=== PATIENT | male | born 1940 | race Caucasian/White ===

== ENCOUNTER 2017-08-29 12:02 | Emergency (ER) | payer MEDICARE ==
[~2017-08-29] VITALS: Ht 175.3 cm; Wt 84.1 kg
[2017-08-29] MEDS ORDERED: AMIODARONE PO (12:36)
[2017-08-29] MEDS ORDERED: METOPROLOL SUCC25 M1 PO (12:36)
[2017-08-29] MEDS ORDERED: ATORVASTATIN CA40 MG PO (12:36)
[2017-08-29] MEDS ORDERED: SERTRALINE HYD100 MG PO (12:36)
[2017-08-29] MEDS ORDERED: PRADAXA 150MG150 MG PO (12:36)
[2017-08-29] MEDS ORDERED: FLUTICASON0.05 MG/AC NS (12:36)
[2017-08-29] MEDS ORDERED: LISINOPRIL2.5 MG PO (12:36)
[2017-08-29] MEDS ORDERED: OMEPRAZOLE D/R20 MG PO (12:36)
[2017-08-29 13:14] LABS: HEMATOCRIT 39.9 % (42.0-52.0); MEAN CELL VOLUME 92 fl (78-100); MEAN CORPUSCULAR HEMOGLOBIN 30 pg (27-31); MEAN CORPUSCULAR HGB CONC 33 g/dL (33-37); MEAN PLATELET VOLUME 8.9 fl (7.4-10.4); PLATELET COUNT 204 K/mm3 (130-400); RED BLOOD COUNT 4.36 M/mm3 (4.20-5.60); RED CELL DISTRIBUTION WIDTH 13.5 % (11.5-14.5); WHITE BLOOD COUNT 12.3 K/mm3 (4.8-10.8)
[2017-08-29 13:23] LABS: LYMPHOCYTE 5 % (20-51); MONOCYTE 7 % (3-10); NEUTROPHILS 88 % (42-75)
[2017-08-29 13:27] LABS: ALBUMIN 3.4 g/dL (3.5-5.0); BUN/CREATININE RATIO 13.9 (6.0-26.0); CALCIUM 8.7 mg/dL (8.4-10.2); POTASSIUM 4.5 mmol/L (3.6-5.0); TOTAL BILIRUBIN 0.7 mg/dL (0.2-1.3); TOTAL PROTEIN 6.6 g/dL (6.3-8.2)
[2017-08-29 14:12] LABS: URINE APPEARANCE CLEAR; URINE BILIRUBIN NEGATIVE (NEGATIVE); URINE GLUCOSE NEGATIVE (NEGATIVE); URINE KETONE NEGATIVE (NEGATIVE); URINE NITRATE NEGATIVE (NEGATIVE); URINE PROTEIN(semi-quant) 1+ mg/dL (NEGATIVE); URINE UROBILINOGEN NORMAL (NORMAL)
[2017-08-29 14:13] LABS: URINE BLOOD TRACE (NEGATIVE); URINE COLOR DARK YELLOW; URINE LEUKOCYTE ESTERASE NEGATIVE (NEGATIVE); URINE MUCUS PRESENT (NOT PRESENT); URINE WBC 0-1 /hpf (0-3)
[2017-08-29 15:12] VITALS: BP 118/69
== END 2017-08-29 15:06 | disposition home or self-care (01) ==
LOC: ED 12:02
PROVIDERS: Physician Assistant
DX: B34.9 Viral infection, unspecified (principal); I48.91 Unspecified atrial fibrillation; Z79.01 Long term (current) use of anticoagulants; K21.9 Gastro-esophageal reflux disease without esophagitis; I10 Essential (primary) hypertension; I51.9 Heart disease, unspecified

== ENCOUNTER 2017-09-12 15:35 | Emergency (ER) | payer MEDICARE ==
[~2017-09-12] VITALS: Ht 182.9 cm; Wt 81.8 kg
[~2017-09-12 15:35] MED LIST: AMIODARONE PO; ATORVASTATIN CA40 MG PO; CEFDINIR300 MG PO; FLUTICASON0.05 MG/AC NS; LISINOPRIL2.5 MG PO; METOPROLOL SUCC25 M1 PO; OMEPRAZOLE D/R20 MG PO; PRADAXA 150MG150 MG PO; SERTRALINE HYD100 MG PO
[2017-09-12 17:23] LABS: HEMATOCRIT 38.6 % (42.0-52.0); HEMOGLOBIN 12.5 g/dL (13.5-18.0); MEAN CELL VOLUME 91 fl (78-100); MEAN CORPUSCULAR HEMOGLOBIN 30 pg (27-31); MEAN CORPUSCULAR HGB CONC 32 g/dL (33-37); MEAN PLATELET VOLUME 8.1 fl (7.4-10.4); PLATELET COUNT 410 K/mm3 (130-400); RED BLOOD COUNT 4.23 M/mm3 (4.20-5.60); RED CELL DISTRIBUTION WIDTH 13.5 % (11.5-14.5)
[2017-09-12 17:47] LABS: ALBUMIN 3.4 g/dL (3.5-5.0); BUN/CREATININE RATIO 16.8 (6.0-26.0); CALCIUM 8.7 mg/dL (8.4-10.2); POTASSIUM 4.3 mmol/L (3.6-5.0); TOTAL BILIRUBIN 0.5 mg/dL (0.2-1.3); TOTAL PROTEIN 6.9 g/dL (6.3-8.2)
[2017-09-12 17:55] LABS: URINE APPEARANCE CLEAR; URINE BILIRUBIN NEGATIVE (NEGATIVE); URINE BLOOD NEGATIVE (NEGATIVE); URINE COLOR YELLOW; URINE GLUCOSE NEGATIVE (NEGATIVE); URINE KETONE NEGATIVE (NEGATIVE); URINE LEUKOCYTE ESTERASE NEGATIVE (NEGATIVE); URINE NITRATE NEGATIVE (NEGATIVE); URINE PROTEIN(semi-quant) NEGATIVE (NEGATIVE); URINE UROBILINOGEN NORMAL (NORMAL); URINE WBC 0-1 /hpf (0-3)
[2017-09-12 17:56] LABS: URINE MUCUS PRESENT (NOT PRESENT)
[2017-09-12 18:38] LABS: BAND 1 % (0-10); LYMPHOCYTE 11 % (20-51); MONOCYTE 7 % (3-10); NEUTROPHILS 81 % (42-75)
[2017-09-12] MEDS ORDERED: CIPRO500 M1 PO (20:03)
[2017-09-12] MEDS ORDERED: FLAGYL500 M1 PO (20:03)
[2017-09-12 20:10] VITALS: BP 112/63
== END 2017-09-12 20:10 | disposition home or self-care (01) ==
LOC: ED 15:35
PROVIDERS: Physician Assistant
DX: K57.32 Diverticulitis of large intestine without perforation or abscess without bleeding (principal); R59.0 Localized enlarged lymph nodes; R91.8 Other nonspecific abnormal finding of lung field; I48.91 Unspecified atrial fibrillation; I10 Essential (primary) hypertension; K21.9 Gastro-esophageal reflux disease without esophagitis
CPT/HCPCS: Q9967

== ENCOUNTER → 2017-10-19 | Outpatient (CLI) | payer MEDICARE ==
[~2017-10-19] MED LIST changes: +CIPRO500 M1 PO; +FLAGYL500 M1 PO
== END ==
LOC: LAB 10:53
DX: R19.7 Diarrhea, unspecified (principal)

== ENCOUNTER → 2017-11-11 | Outpatient (CLI) | payer MEDICARE ==
[2017-11-11 09:06] LABS: EOS # 0.1 (0.04-0.40); EOS % 1.8 % (0.0-4.0); HEMATOCRIT 42.3 % (42.0-52.0); HEMOGLOBIN 13.7 g/dL (13.5-18.0); LYMPH# 2.2 (1.50-4.00); MEAN CELL VOLUME 91 fl (78-100); MEAN CORPUSCULAR HEMOGLOBIN 30 pg (27-31); MEAN CORPUSCULAR HGB CONC 32 g/dL (33-37); MEAN PLATELET VOLUME 8.6 fl (7.4-10.4); MONO # 0.7 (0.20-0.80); NEU # 4.2 (1.40-6.50); PLATELET COUNT 252 K/mm3 (130-400); RED BLOOD COUNT 4.63 M/mm3 (4.20-5.60); RED CELL DISTRIBUTION WIDTH 14.8 % (11.5-14.5); WHITE BLOOD COUNT 7.2 K/mm3 (4.8-10.8)
[2017-11-11 09:23] LABS: ALBUMIN 3.6 g/dL (3.5-5.0); BUN/CREATININE RATIO 17.8 (6.0-26.0); POTASSIUM 4.3 mmol/L (3.6-5.0); TOTAL BILIRUBIN 0.3 mg/dL (0.2-1.3); TOTAL PROTEIN 7.1 g/dL (6.3-8.2)
[2017-11-11 09:26] LABS: PROTHROMBIN TIME 10.8 SECONDS (9.0-12.0)
== END ==
LOC: LAB 08:42
PROVIDERS: Internal Medicine
DX: R79.1 Abnormal coagulation profile (principal); R59.9 Enlarged lymph nodes, unspecified

== ENCOUNTER → 2017-11-12 | Outpatient (CLI) | payer MEDICARE | LOC: RAD 07:55 | DX: R59.0 Localized enlarged lymph nodes (principal) | CPT/HCPCS: Q9967 ==

== ENCOUNTER → 2018-02-05 | Outpatient (CLI) | payer MEDICARE | LOC: RAD 09:45 | DX: R59.0 Localized enlarged lymph nodes (principal) | CPT/HCPCS: Q9967 ==

== ENCOUNTER → 2018-05-09 | Outpatient (CLI) | payer MEDICARE ==
[2018-05-09 09:10] LABS: EOS # 0.1 (0.04-0.40); EOS % 1.5 % (0.0-4.0); HEMATOCRIT 42.7 % (42.0-52.0); HEMOGLOBIN 14.2 g/dL (13.5-18.0); LYMPH# 1.9 (1.50-4.00); MEAN CELL VOLUME 92 fl (78-100); MEAN CORPUSCULAR HEMOGLOBIN 31 pg (27-31); MEAN CORPUSCULAR HGB CONC 33 g/dL (33-37); MEAN PLATELET VOLUME 8.8 fl (7.4-10.4); MONO # 0.8 (0.20-0.80); NEU # 6.4 (1.40-6.50); PLATELET COUNT 267 K/mm3 (130-400); RED BLOOD COUNT 4.64 M/mm3 (4.20-5.60); RED CELL DISTRIBUTION WIDTH 13.5 % (11.5-14.5); WHITE BLOOD COUNT 9.3 K/mm3 (4.8-10.8)
[2018-05-09 09:45] LABS: ALBUMIN 3.7 g/dL (3.5-5.0); POTASSIUM 4.2 mmol/L (3.6-5.0); TOTAL BILIRUBIN 0.5 mg/dL (0.2-1.3); TOTAL PROTEIN 6.8 g/dL (6.3-8.2)
== END ==
LOC: LAB 08:49
PROVIDERS: Internal Medicine
DX: R59.1 Generalized enlarged lymph nodes (principal)

== ENCOUNTER → 2018-05-13 | Outpatient (CLI) | payer MEDICARE | LOC: RAD 08:49 | DX: R59.1 Generalized enlarged lymph nodes (principal) | CPT/HCPCS: Q9967 ==

== ENCOUNTER → 2018-12-03 | Outpatient (CLI) | payer MEDICARE, BC ==
[2018-12-03 13:47] LABS: EOS # 0.1 (0.04-0.40); EOS % 1.6 % (0.0-4.0); HEMATOCRIT 42.9 % (42.0-52.0); HEMOGLOBIN 14.1 g/dL (13.5-18.0); LYMPH# 1.9 (1.50-4.00); MEAN CELL VOLUME 92 fl (78-100); MEAN CORPUSCULAR HEMOGLOBIN 30 pg (27-31); MEAN CORPUSCULAR HGB CONC 33 g/dL (33-37); MEAN PLATELET VOLUME 8.9 fl (7.4-10.4); MONO # 0.6 (0.20-0.80); NEU # 4.4 (1.40-6.50); PLATELET COUNT 231 K/mm3 (130-400); RED BLOOD COUNT 4.66 M/mm3 (4.20-5.60); RED CELL DISTRIBUTION WIDTH 13.8 % (11.5-14.5); WHITE BLOOD COUNT 7.1 K/mm3 (4.8-10.8)
[2018-12-03 14:06] LABS: ALBUMIN 3.9 g/dL (3.4-4.8); CALCIUM 9.3 mg/dL (8.3-10.5); POTASSIUM 4.4 mmol/L (3.5-5.1); TOTAL BILIRUBIN 0.6 mg/dL (0.2-1.2); TOTAL PROTEIN 6.7 g/dL (6.2-8.1)
== END ==
LOC: LAB 13:25
PROVIDERS: Internal Medicine
DX: R59.1 Generalized enlarged lymph nodes (principal)

== ENCOUNTER → 2018-12-09 | Outpatient (CLI) | payer MEDICARE, BC | LOC: RAD 08:30 | DX: N40.0 Benign prostatic hyperplasia without lower urinary tract symptoms (principal); R59.1 Generalized enlarged lymph nodes; R93.819 Abnormal radiologic findings on diagnostic imaging of unspecified testicle | CPT/HCPCS: Q9967 ==

== ENCOUNTER → 2019-09-07 | Outpatient (CLI) | payer MEDICARE | LOC: LAB 16:52 | DX: R59.9 Enlarged lymph nodes, unspecified (principal) ==

== ENCOUNTER → 2019-09-10 | Outpatient (CLI) | payer MEDICARE ==
[2019-09-07 17:22] LABS: EOS # 0.2 (0.04-0.40); HEMATOCRIT 42.8 % (42.0-52.0); HEMOGLOBIN 13.9 g/dL (13.5-18.0); LYMPH# 2.7 (1.50-4.00); MEAN CELL VOLUME 92 fl (78-100); MEAN CORPUSCULAR HEMOGLOBIN 30 pg (27-31); MEAN CORPUSCULAR HGB CONC 33 g/dL (33-37); MONO # 0.7 (0.20-0.80); NEU # 4.1 (1.40-6.50); PLATELET COUNT 235 K/mm3 (130-400); RED BLOOD COUNT 4.66 M/mm3 (4.20-5.60); RED CELL DISTRIBUTION WIDTH 13.5 % (11.5-14.5); WHITE BLOOD COUNT 7.7 K/mm3 (4.8-10.8)
[2019-09-07 17:25] LABS: ALBUMIN 4.1 g/dL (3.4-4.8)
[2019-09-07 17:27] LABS: POTASSIUM 4.3 mmol/L (3.5-5.1)
[2019-09-07 17:29] LABS: CALCIUM 9.8 mg/dL (8.3-10.5)
[2019-09-07 17:30] LABS: TOTAL BILIRUBIN 0.4 mg/dL (0.2-1.2); TOTAL PROTEIN 6.9 g/dL (6.2-8.1)
== END ==
LOC: RAD 08:11
PROVIDERS: Internal Medicine
DX: K76.0 Fatty (change of) liver, not elsewhere classified (principal); K57.30 Diverticulosis of large intestine without perforation or abscess without bleeding; N40.0 Benign prostatic hyperplasia without lower urinary tract symptoms; N28.9 Disorder of kidney and ureter, unspecified; R59.1 Generalized enlarged lymph nodes
CPT/HCPCS: Q9967

== ENCOUNTER → 2020-09-05 | Outpatient (CLI) | payer MEDICARE, BC | LOC: LAB 08:01 | DX: R59.0 Localized enlarged lymph nodes (principal) ==

== ENCOUNTER → 2020-09-07 | Outpatient (CLI) | payer MEDICARE, BC ==
[2020-09-05 08:32] LABS: ALBUMIN 3.8 g/dL (3.4-4.8)
[2020-09-05 08:33] LABS: EOS # 0.1 (0.04-0.40); EOS % 2.2 % (0.0-4.0); HEMATOCRIT 42.8 % (42.0-52.0); HEMOGLOBIN 14.1 g/dL (13.5-18.0); LYMPH# 1.9 (1.50-4.00); MEAN CELL VOLUME 92 fl (78-100); MEAN CORPUSCULAR HEMOGLOBIN 30 pg (27-31); MEAN CORPUSCULAR HGB CONC 33 g/dL (33-37); MEAN PLATELET VOLUME 9.3 fl (7.4-10.4); MONO # 0.6 (0.20-0.80); NEU # 3.7 (1.40-6.50); PLATELET COUNT 197 K/mm3 (130-400); POTASSIUM 4.1 mmol/L (3.5-5.1); RED BLOOD COUNT 4.65 M/mm3 (4.20-5.60); WHITE BLOOD COUNT 6.3 K/mm3 (4.8-10.8)
[2020-09-05 08:34] LABS: CALCIUM 8.9 mg/dL (8.3-10.5)
[2020-09-05 08:35] LABS: TOTAL PROTEIN 6.8 g/dL (6.2-8.1)
[2020-09-05 08:37] LABS: TOTAL BILIRUBIN 0.6 mg/dL (0.2-1.2)
== END ==
LOC: RAD 07:52
PROVIDERS: Internal Medicine
DX: N40.0 Benign prostatic hyperplasia without lower urinary tract symptoms (principal)
CPT/HCPCS: Q9967

== ENCOUNTER → 2023-07-05 | Outpatient (CLI) | payer OTHER | LOC: RAD 14:50 | DX: S82.402A Unspecified fracture of shaft of left fibula, initial encounter for closed fracture (principal); W19.XXXA Unspecified fall, initial encounter ==